=== PATIENT | female | born 1930 | race Caucasian/White ===

== ENCOUNTER 2019-05-28 08:33 | Inpatient (IN) ==
--- NOTE | 2019-05-28 09:29 | Diag Imaging Result Doc PS360 ---
EXAM: CHEST-PORTABLE 05/28/2019 HISTORY: stroke sym TECHNIQUE: Erect AP portable at 0920 COMMENT: There is left ventricular enlargement. The inspiration is slightly less optimal than on 06/26/2012, otherwise are has been no significant change in the appearance of the chest. IMPRESSION: Stable chest. Electronically signed by Tray Costa 05/28/2019 9:27 AM
--- NOTE | 2019-05-28 09:29 | Diag Imaging Result Doc PS360 ---
EXAM: CT HEAD W/O CONTRAST 05/28/2019 HISTORY: Stroke alert TECHNIQUE: This exam was performed using automated exposure control, adjustment of mA or kV according to patient size, and/or use of iterative reconstruction technique. COMMENT: There are calcifications in the vertebral and internal carotid arteries. There is mild generalized cerebral atrophy. There is no evidence of mass effect, bleed, or abnormal extra-axial fluid collection. Compared to the previous study of 01/08/2018, there has been no apparent change. Both studies had to be repeated due to patient motion. The visualized paranasal sinuses are clear. IMPRESSION: Atrophy. No evidence of acute intracranial disease. Electronically signed by Tray Costa 05/28/2019 9:26 AM
[2019-05-28 09:43] LABS: BASO# 0.03 X1000 (0.0-0.2); BASO% 0.4 % (0.0-0.8); EOS# 0.05 X1000 (0.0-0.7); EOS% 0.7 % (0.0-10.0); HEMATOCRIT 39.6 % (37.0-47.0); HEMOGLOBIN 13.9 g/dL (12.0-16.0); IMM GRAN# 0.09 X1000 (0.0-0.04); IMM GRAN% 1.2 % (0.0-0.5); LYMPH# 1.57 X1000 (1.2-3.4); LYMPH% 20.4 % (20.5-51.1); MCHC 35.1 g/dL (33-37); MCV 88.4 FL (81-99); MONO# 0.93 X1000 (0.11-0.59); MONO% 12.1 % (1.7-9.3); MPV 9.4 FL (7.4-10.4); NEUT# 5.02 X1000 (1.4-6.5); NEUT% 65.2 % (42.2-75.2); PLT 283 X1000 (130-400); RBC 4.48 XMIL (4.2-5.4); RDW 12.1 % (11.5-14.5); WBC 7.69 X1000 (4.8-10.8)
--- NOTE | 2019-05-28 09:45 | PROVIDER DOCUMENTATION ---
HPI-General Adult - General Chief Complaint: STROKE ALERT Stated Complaint: HEADACHE / CONFUSED Time Seen by Provider: 05/28/19 09:14 Source: family Allergies/Adverse Reactions: Patient Allergies Allergy/AdvReac Type Severity Reaction Status Date / Time No Known Allergies Allergy Verified 05/28/19 09:56 Home Medications: Home Medication List Medication Instructions Recorded Confirmed Last Taken Type Pantoprazole [Protonix] 40 mg PO DAILY 12/05/14 05/28/19 11/29/17 05:00 History Tramadol HCl 50 mg PO 4XDAY PRN 12/05/14 05/28/19 12/04/14 20:00 History Allopurinol [Zyloprim] 300 mg PO DAILY 11/29/17 05/28/19 Unknown History Ergocalciferol (Vitamin D2) 50,000 unit PO DAILY 11/29/17 05/28/19 11/28/17 08:00 History [Vitamin D2] Hydrocodone/Acetaminophen [[place] 1 each PO DAILY PRN PRN 11/29/17 05/28/19 11/29/17 05:00 History 7.5-325 Tablet] Trazodone [Desyrel] 50 mg PO QHS 11/29/17 05/28/19 11/28/17 20:00 History Triamterene/Hydrochlorothiazid 1 each PO DAILY 01/08/18 05/28/19 Unknown History [Dyazide 37.5-25 Capsule] Gabapentin 1 cap PO QHS 05/28/19 05/28/19 Unknown History Hydroxyzine [Atarax] 30 mg PO BID 05/28/19 05/28/19 Unknown History Patient's Own Med 20 drp TOP 4XDAY PRN 05/28/19 05/28/19 Unknown History - History of Present Illness -Gen Adult Nature of Presenting Problems: [id number] presents to the ER with her Grandson c/o sudden onset of fatigue. He reports that she was getting ready to visit his brother this morning when she suddenly went slumped over and said "i'm just so tired I can't do it". He reports that she never had LOC or syncope, was just very "relaxed" for several minutes. She is resting in bed, however, she is completely oriented, and has no s/s of stroke like activity. She does seem drowsy. He reports that she may have taken the wrong medication this morning. Location of Pain/Injury: reports: none Onset/Duration: reports: just prior to arrival Associated Symptoms: reports: fatigue Similar Symptoms Previously?: No Recently seen or treated by another doctor?: No Review of Systems - Adult - REVIEW OF SYSTEMS - ADULT Constitutional: reports: see demetri MACKENZIE. denies: chills, fever Eyes: reports: no symptoms reported. denies: decreased vision, blurred vision, double vision, eye pain Ears, Nose, Mouth & Throat: reports: no symptoms reported. denies: tinnitus Cardiovascular: reports: no symptoms reported. denies: chest pain, orthopnea, palpitations, syncope Respiratory: reports: no symptoms reported. denies: cough, dyspnea on exertion, shortness of breath, wheezing Gastrointestinal: reports: no symptoms reported Genitourinary: reports: no symptoms reported. denies: dysuria, flank pain, frequent UTI's, hematuria Musculoskeletal: reports: no symptoms reported Integumentary: reports: no symptoms reported Neurological: reports: no symptoms reported. denies: ataxia, dizziness/vertigo, headache/migraines, loss of balance, numbness, slurred speech, syncope Psychiatric: reports: no symptoms reported. denies: anxiety Endocrine: reports: no symptoms reported Hematologic/Lymphatic: reports: no symptoms reported Allergic/Immunologic: reports: no symptoms reported All Other Systems: Reviewed and Negative Past History - Adult - PAST MEDICAL HISTORY-ADULT Review of Records: reports: Old Records Reviewed, Nursing Assessment Review, Medications Reviewed, Social history reviewed & non-contributory. Major Childhood Illnesses: reports: denies history Cardiovascular: reports: HTN Respiratory: reports: denies history Gastrointestinal: reports: GERD Obstetrical/Gynecological: reports: other (cervical cancer) Genitourinary: reports: denies history Musculoskeletal: reports: arthritis Neurological: reports: denies history Endocrine/Immune: reports: thyroid disorder Other Conditions: reports: denies history - PRIOR SURGERIES/PROCEDURES Surgical/Procedure History: reports: appendectomy, cholecystectomy, hysterectomy , joint replacement - IMMUNIZATION STATUS Childhood Immunizations: See Nurse Assessment Flu Vaccine: See Nurse Assessment - FAMILY HISTORY Family History: reviewed, not pertinent - SOCIAL HISTORY Smoking: denies Substance Use: denies Living Situation: family Physical Exam-General - PHYSICAL EXAM-ADULT Initial Vital Signs Reviewed: Yes - CONSTITUTIONAL General Appearance: lethargic - EYES Eyes: PERRL/EOMI, pink conjunctivae - HEAD, EARS, NOSE, MOUTH & THROAT HENMT: moist mucous membranes, TMs normal - NECK Neck: full range of motion, supple - RESPIRATORY Respiratory: lungs clear, normal breath sounds - CARDIOVASCULAR Cardiovascular: regular rate, rhythm - GASTROINTESTINAL (ABDOMEN) Abdominal Exam: non tender, soft - MUSCULOSKELETAL Extremity: non-tender, normal gait Peripheral Pulses: radial (R): 2+, radial (L): 2+, dorsalis-pedis (R): 2+, dorsalis-pedis (L): 2+ - SKIN Integumentary: normal color, normal turgor, warm/dry - NEUROLOGIC Neurologic: grossly normal. negative: facial droop, focal weakness, motor weakness, sensory deficit - PSYCHIATRIC Psych/Mental Status: normal mood/affect, normal thought content, normal thought process, oriented x 3 Progress - PLAN OF CARE/RESULTS Progress/Plan/Lab Results: Vital Signs - 8 hr 05/28/19 08:40 Temperature 98 F Pulse Rate 82 Respiratory Rate 18 Blood Pressure 86/53 O2 Sat by Pulse Oximetry 95 Orders Category Date Time Status Cardiac Monitoring DIRECTED Care 05/28/19 08:57 Active Nursing- Obtain EKG ONCE Care 05/28/19 08:57 Active CHEST-PORTABLE [RAD] Stat Exams 05/28/19 08:[address] HEAD W/O CONTRAST [CT] Stat Exams 05/28/19 08:55 Completed CBC WITH DIFF [HEME] Stat Lab 05/28/19 08:57 Ordered CK PROFILE [SP CHEM] Stat Lab 05/28/19 08:57 Ordered COMPREHENSIVE METABOLIC PANEL [CHEM] Stat Lab 05/28/19 09:30 Ordered D-DIMER [COAG] Stat Lab 05/28/19 08:57 Ordered MAGNESIUM [CHEM] Stat Lab 05/28/19 09:30 Ordered PRO B-NATRIURETIC PEPTIDE Stat Lab 05/28/19 09:30 Ordered PROTIME WITH INR [COAG] Stat Lab 05/28/19 09:30 Ordered TROPONIN T Stat Lab 05/28/19 08:57 Ordered EKG [EKG] Stat Ther 05/28/19 08:57 Ordered Family verbalizes an understanding of POC and agrees with treatment rendered here today. Result Diagrams: 05/29/19 08:00 05/29/19 08:00 - XRAY 1 XRAY Study: Chest Impression: Normal (COMMENT: There is left ventricular enlargement. The inspiration is slightly less optimal than on 06/26/2012, otherwise are has been no significant change in the appearance of the chest. IMPRESSION: Stable chest.), See EMR Report - CT/MRI 1 MRI Study: Head Impression: Normal (COMMENT: There are calcifications in the vertebral and internal carotid arteries. There is mild generalized cerebral atrophy. There is no evidence of mass effect, bleed, or abnormal extra-axial fluid collection. Compared to the previous study of 01/08/2018, there has been no apparent change. Both studies had to be repeated due to patient motion. The visualized paranasal sinuses are clear. IMPRESSION: Atrophy. No evidence of acute intracranial disease.), See EMR Report - CONSULTS/PCP/HOSPITALIST Notification #1 *Consult/PCP/Hospitalist*: Dr Bond Time Discussed: 10:21 Reason/Comments: hyponatremia Consult Disposition: Admit Departure - Departure Date of Disposition Decision: 05/28/19 Time of Disposition Decision: 11:58 DIAGNOSIS: Hyponatremia Disposition: ADMITTED INPATIENT 09 Certified Medical Emergency: Emergent Condition: Critical - Critical Care Note This patient required my direct & personal management of CC.: No Attestation - Physician/ IFTIKHAR Attestation Patient care was provided by Advanced Practice Provider:: Yes Advanced Practice Provider:: Jb Heath Advanced Practice Provider documentation review:: The Mid-level provider documentation, treatment plan and medical decision making was reviewed by the physician who agrees with all treatment and medical decision making by the [facility]. The physician spent face to face time with patient:: No Advanced Practice Provider documentation review:: Supervising physician onsite and consulted in the evaluation and care of this patient. The physician did not have a face to face encounter with the patient.
[2019-05-28 09:57] LABS: INR 0.94
[2019-05-28 10:09] LABS: ALBUMIN 4.9 g/dL (3.5-5.0); CALCIUM 10.6 mg/dL (8.8-10.2); MAGNESIUM 1.5 mg/dL (1.5-2.7); POTASSIUM 3.9 mmol/L (3.5-5.1); TOTAL BILIRUBIN 0.8 mg/dL (0.20-1.00); TOTAL PROTEIN 7.7 g/dL (6.3-8.3)
--- NOTE | 2019-05-28 10:40 | EKG Report ---
Test Performed on : 05/28/2019 11:16:35 AM Test Reason : stroke sym Blood Pressure : / mmHG Vent. Rate : 066 BPM Atrial Rate : 066 BPM P-R Int : 224 ms QRS Dur : 100 ms QT Int : 412 ms P-R-T Axes : 047 -03 050 degrees QTc Int : 431 ms Sinus rhythm. with 1st degree AV block. Inferior infarct , age undetermined Abnormal ECG When compared with ECG of 08-JAN-2018 13:56, Inferior infarct is now present Unconfirmed Result
[2019-05-28 10:49] LABS: CK INDEX 2.5 (0.0-2.5); CK-MB 4.79 ng/mL (0.0-5.0)
[2019-05-28] MEDS ORDERED: NS 1,000 ML IV ONE (11:19)
[2019-05-28 11:25] LABS: BILIRUBIN URINE NEGATIVE (NEGATIVE); BLOOD URINE 1+ (NEGATIVE); CLARITY CLEAR (CLEAR); COLOR YELLOW; GLUCOSE URINE NEGATIVE (NEGATIVE); KETONE URINE NEGATIVE (NEGATIVE); LEUKOCYTES URINE 1+ (NEGATIVE); NITRITE URINE NEGATIVE (NEGATIVE); PROTEIN URINE TRACE mg/dL (NEGATIVE); SP GRAVITY URINE 1.005; UROBILINOGEN URINE NORMAL
[2019-05-28 11:29] LABS: URINE BACTERIA 1+ /HFP; URINE EPITHELIAL CELLS <10 /HPF (<10); URINE RBC <10 /HPF (<10); URINE SOURCE CATH
[2019-05-28] MEDS ORDERED: ZOFRAN IV PRN (11:56)
[2019-05-28] MEDS: TYLENOL PO PRN ×2 (12:46→19:39)
--- NOTE | 2019-05-28 12:52 | HISTORY AND PHYSICAL ---
PRIMARY CARE PROVIDER: Dr. Escobar. CHIEF COMPLAINT: Confusion. HISTORY OF PRESENT ILLNESS: Ms. Velásquez is an 88-year-old female who carries a past medical history of arthritis of the lumbar spine, cervical cancer treated with surgery only, and a total hysterectomy, hypertension, chronic constipation, gout, vitamin D deficiency, anxiety, GERD, and insomnia. She was brought into the ED by her grandson after she became lightheaded, weak, and slumped over the console of the car, but did not lose any consciousness. She stated she was just too weak to lift her head up, so she was brought into the ER where she was found to be hyponatremic at 123. Head CT does not show any acute disease. EKG just shows a normal sinus rhythm with a first-degree AV block. She was initiated on IV fluids. We will check urine studies, and stop her home diuretic, and hold any other medications that could lower her sodium. She is completely oriented. She does answer most questions. She just reports that she would just like to go to her room and get some sleep, so she will be admitted to medical telemetry, gently hydrated overnight, and will keep a close watch on her sodium. PAST MEDICAL HISTORY: 1. Hypertension. 2. GERD. 3. Cervical cancer. 4. Arthritis of the lumbar spine. 5. Gout. 6. Vitamin D deficiency. 7. Anxiety. 8. GERD. 9. Chronic insomnia. PAST SURGICAL HISTORY: Total hysterectomy, BSO in 1988, bilateral knee replacement, cholecystectomy, appendectomy. FAMILY HISTORY: Daughter with lung cancer. Son with brain cancer. Another son with colon cancer. Father of an ME. SOCIAL HISTORY: She lives in [place]. She is very close with her grandson, and I believe he is her primary caregiver. She has 3 children, ones that are and 1 daughter that is still living. Lifelong homemaker. Never smoked. No alcohol or illicit drugs. REVIEW OF SYSTEMS: Complete and negative, except for those mentioned in the HPI. ALLERGIES: No known drug allergies. HOME MEDICATIONS: 1. Zyloprim 300 mg p.o. daily. 2. Vitamin D2, 50,000 units p.o. daily. 3. [place] 7.5/325 one each p.o. daily p.r.n. pain. 4. Protonix 40 mg p.o. daily. 5. Tramadol 50 mg p.o. 4 times a day. 6. Desyrel 50 mg p.o. at bedtime. 7. Dyazide 1 each p.o. daily, 3.5/25 mg capsule. PHYSICAL EXAMINATION: VITAL SIGNS: Temperature is 98.2 degrees, heart rate 57, respirations 18, blood pressure 142/53, O2 is 100% on room air. GENERAL: Ms. Velásquez is a pleasant, 88-year-old, female, who is lying in the bed, moving about, trying to get comfortable, but in no acute distress. HEENT: Atraumatic, normocephalic. PERRL. NECK: Supple. Trachea midline. CARDIOVASCULAR: S1, S2 appreciated. No murmurs, gallops, rubs noted. RESPIRATORY: Lung sounds are clear bilaterally. GASTROINTESTINAL: Soft, nontender, nondistended. Positive bowel sounds in all 4 quadrants. LOWER EXTREMITIES: Negative for edema. SKIN: Appears to be pale and dry. Mucous membranes dry. NEUROLOGIC: The patient is awake, alert, oriented, following commands, answers questions. No focal deficits noted. DIAGNOSTIC DATA: Head CT: Atrophy, but no evidence of acute intracranial disease. Chest x-ray was stable. EKG: Sinus rhythm with a first-degree AV block at 66 beats per minute. ASSESSMENT AND PLAN: 1. Hyponatremia. We will do some urine studies. Watch her sodium closely every 6 hours. Continue with gentle hydration overnight. We will stop her diuretic. 2. Clinical dehydration secondary to diuretic use. Again, we will continue with intravenous fluids. 3. Hypertension. 4. Chronic constipation. 5. History of gout. 6. Vitamin D deficiency. 7. Anxiety. 8. Gastroesophageal reflux disease. 9. Chronic insomnia. Further recommendation to follow physician evaluation, laboratory and diagnostic data. Dictated by LARS Pepper for Kendall Bond MD cc: MD Dr. Shawn Washington
[2019-05-28] MEDS ORDERED: PATIENT'S OWN MED TOP PRN (16:40)
[2019-05-28] MEDS ORDERED: ULTRAM PO PRN (16:40)
--- NOTE | 2019-05-28 17:03 | HISTORY AND PHYSICAL ---
ADDENDUM: Patient seen and examined by myself. Full note dictated and discussed with nurse practitioner. Patient presented to the hospital confused and disoriented. Her grandson noted that he was getting her ready to go see her brother and she slumped over and was confused and disoriented and did not know where she was. It appears though she has done this approximately a year and a half ago in December of 2017. Her sodium also was 125. It quickly improved . She is on a diuretic. Certainly going to hold this. Place her on normal saline and will follow. cc: Kendall Bond MD MTDD
[2019-05-28] MEDS: NORCO-7.5 PO PRN (18:46)
[2019-05-28] MEDS: ATARAX PO SCH ×2 (19:38→23:06)
[2019-05-28] MEDS: DESYREL PO SCH ×2 (19:38→23:07)
[2019-05-28] MEDS: NEURONTIN PO SCH ×2 (19:39→23:06)
[2019-05-28] MEDS: ATIVAN IV PRN (20:23)
[2019-05-29] MEDS: ATIVAN IV PRN (00:11)
[2019-05-29] MEDS: NS 1,000 ML IV SCH ×2 (02:26→15:38)
[2019-05-29] MEDS: PROTONIX PO SCH (06:09)
[2019-05-29] MEDS ORDERED: FLU VACCINE IM ONE (07:00)
[2019-05-29 08:11] LABS: BASO# 0.04 X1000 (0.0-0.2); BASO% 0.4 % (0.0-0.8); EOS# 0.21 X1000 (0.0-0.7); EOS% 2.2 % (0.0-10.0); HEMATOCRIT 38.5 % (37.0-47.0); IMM GRAN# 0.06 X1000 (0.0-0.04); IMM GRAN% 0.6 % (0.0-0.5); LYMPH# 2.29 X1000 (1.2-3.4); LYMPH% 24.5 % (20.5-51.1); MCHC 33.8 g/dL (33-37); MCV 91.7 FL (81-99); MONO# 1.49 X1000 (0.11-0.59); MONO% 15.9 % (1.7-9.3); MPV 9.3 FL (7.4-10.4); NEUT# 5.26 X1000 (1.4-6.5); NEUT% 56.4 % (42.2-75.2); PLT 269 X1000 (130-400); RDW 12.2 % (11.5-14.5); WBC 9.35 X1000 (4.8-10.8)
[2019-05-29 08:39] LABS: AGAP 10; ALBUMIN 4.4 g/dL (3.5-5.0); ALKALINE PHOSPHATASE 89 U/L (32-104); BUN 11 mg/dL (8-22); CHLORIDE 102 mmol/L (98-107); COSMO 271; CREATININE 0.7 mg/dL (0.5-0.9); ESTIMATED GFR > 60; GLUCOSE 125 mg/dL (70-104); GOT 22 U/L (10-30); GPT 13 U/L (10-36); POTASSIUM 4.6 mmol/L (3.5-5.1); SODIUM 135 mmol/L (136-145); TCO2 23 mmol/L (25-35); TOTAL PROTEIN 7.1 g/dL (6.3-8.3)
[2019-05-29] MEDS: ATARAX PO SCH ×2 (10:38→21:10)
[2019-05-29] MEDS: ZYLOPRIM PO SCH (10:39)
[2019-05-29] MEDS: VITAMIN D PO SCH (10:39)
[2019-05-29] MEDS: NORCO-7.5 PO PRN (18:48)
[2019-05-29] MEDS: NEURONTIN PO SCH (21:11)
--- NOTE | 2019-05-30 00:57 | PROGRESS NOTE ---
DATE: 05/29/2019 SUBJECTIVE: The patient is still confused, disoriented, does not answer questions nor follow commands. PHYSICAL EXAMINATION: Vital Signs: Reviewed. General: She is awake, alert. She is in no respiratory distress, but is confused. HEENT: Normocephalic. Neck: Supple. Cardiovascular: Regular rate. Chest: Clear and nonlabored. Abdomen: Soft, nondistended. Extremities: Moves all extremities. ASSESSMENT: 1. Hyponatremia continues to be problematic. Sodium has increased from 122 to 124. We have held her diuretic as well as her Desyrel. 2. Hypertension. 3. Chronic constipation. 4. History of gout. 5. Vitamin D deficiency. PLAN: We are going to continue the patient in the hospital. Continue to follow. Recheck her sodium in the morning. We may need to fluid restrict. Further orders as needed. cc: Kendall Bond MD
[2019-05-30] MEDS: NS 1,000 ML IV SCH ×2 (04:19→16:31)
[2019-05-30] MEDS: PROTONIX PO SCH (06:52)
[2019-05-30] MEDS: ZYLOPRIM PO SCH (09:27)
[2019-05-30] MEDS: VITAMIN D PO SCH (09:27)
[2019-05-30] MEDS: ATARAX PO SCH (09:27)
[2019-05-30] MEDS: NORCO-7.5 PO PRN (09:28)
[2019-05-30] MEDS ORDERED: ROCEPHIN 1 GM in NS 50 ML IV SCH (11:00)
[2019-05-30] MEDS: TYLENOL PO PRN (15:21)
[2019-05-30 15:41] VITALS: BP 155/50
--- NOTE | 2019-06-16 11:09 | DISCHARGE SUMMARY ---
ADMISSION DATE: 05/28/2019 DISCHARGE DATE: 05/30/2019 ADMISSION DIAGNOSES: 1. Hyponatremia. 2. Hypertension. 3. Constipation. DISCHARGE DIAGNOSES: 1. Hyponatremia. 2. Uncontrolled hypertension. 3. Constipation. 4. Escherichia coli urinary tract infection. HOSPITAL COURSE: Briefly, this is an 88-year-old female with history of cervical cancer, who came in with lightheadedness and weakness. Her sodium is 123. She was given I believe normal saline. It was analyzed several times. By 8 o'clock the next day though it had gone up to 135, essentially had corrected but clinically she seemed better and she was felt stable for discharge. DISCHARGE MEDICATIONS: 1. Trazodone 50. 2. Gabapentin 100 at bedtime. 3. Atarax 10 daily. 4. [place] p.r.n.. 5. Diclofenac p.r.n. 6. Protonix 40 daily. 7. Tramadol 50 q.i.d. 8. Vitamin D2 50,000 units daily. 9. Allopurinol 300 daily. 10. Keflex 500 p.o. b.i.d. for 7 days. 11. Norvasc 2.5 daily. DISCHARGE CONDITION: Stable. FOLLOWUP: She will need to follow up with her PCP who is Dr. Escobar. cc: Tyson Deleon MD
== END 2019-05-30 20:05 | disposition home or self-care (01) | DRG 641 ==
LOC: P.ED 08:33 → P.MEDSURG 11:41 → SUATTDRO 11:41
PROVIDERS: ATTEND Internal Medicine